=== PATIENT | male | born 1955 | race Caucasian/White ===

== ENCOUNTER → 2017-07-26 | Outpatient (CLI) | payer MEDICARE | LOC: RADXRMAIN 11:02 | PROVIDERS: ATTEND Urology | DX: Z53.9 Procedure and treatment not carried out, unspecified reason (principal) ==

== ENCOUNTER → 2019-10-02 | Outpatient (CLI) | payer MEDICARE ==
[2019-10-02 12:42] LABS: HCT 46.1 % (39.0-53.0); HGB 15.2 gm/dL (13.0-17.5); MCH 30.8 pg (25.0-35.0); MCHC 32.9 g/dL (31.0-37.0); MCV 93.4 fL (80.0-100.0); Mean Platelet Volume 8.4; Platelet Count 216 k/uL (150-450); RBC 4.94 m/uL (4.30-5.90); WBC 9.5 k/uL (3.8-10.6)
[2019-10-02 12:47] LABS: Appearance,Urine Clear (Clear); Color,Urine Amber
[2019-10-02 12:48] LABS: Bilirubin,Urine Negative (Negative); Blood,Urine Negative (Negative); Glucose,Urine (UA) Negative (Negative); Ketones,Urine Negative (Negative); Nitrite,Urine Negative (Negative); Protein,Urine Negative (Negative); Specific Gravity,Urine 1.025 (1.001-1.035)
[2019-10-02 12:49] LABS: ALT 29 U/L (4-49); AST 28 U/L (17-59); African American GFR (CKD) >90 (>60 ml/min/1.73 sqM); Albumin 4.2 g/dL (3.5-5.0); Alkaline Phosphatase 50 U/L (38-126); Anion Gap 9 mmol/L; Blood Urea Nitrogen 18 mg/dL (9-20); Carbon Dioxide 25 mmol/L (22-30); Chloride 107 mmol/L (98-107); Glucose 100 mg/dL (74-99); Leukocyte Esterase,Urine Negative (Negative); Non-African American GFR(CKD) 87 (>60 ml/min/1.73 sqM); Potassium 3.9 mmol/L (3.5-5.1); Sodium 141 mmol/L (137-145); Total Bilirubin 0.8 mg/dL (0.2-1.3); Urobilinogen,Urine <2.0 mg/dL (<2.0)
[2019-10-02 12:50] LABS: Partial Thromboplastin Time 27.7 sec (22.0-30.0); Prothrombin Time 10.3 sec (9.0-12.0)
== END | disposition home or self-care (01) ==
LOC: LABPAT 11:34
PROVIDERS: ATTEND Orthopaedic Surgery
DX: Z01.818 Encounter for other preprocedural examination (principal); Z01.812 Encounter for preprocedural laboratory examination; Z51.81 Encounter for therapeutic drug level monitoring; Z79.01 Long term (current) use of anticoagulants
CPT/HCPCS: 36415; 80053; 81003; 85027; 85610; 85730; 86850; 86900; 86901; 87070; 93005

== ENCOUNTER 2019-10-09 05:31 | Day surgery (SDC) | payer BC, MEDICARE ==
[2019-10-02 15:15] VITALS: BMI 31.7
[~2019-10-09 05:31] MED LIST: ACETAMINOPHEN TAB 500 MG TAB PO ONE; GABAPENTIN 300 MG CAP PO ONE; MELOXICAM 7.5 MG TAB PO ONE; TRANEXAMIC ACID 1,000 MG in SODIUM CHLORIDE 0.9% 100 ML IVPB ONE
[2019-10-09] MEDS ORDERED: MIDAZOLAM 2 MG/2 ML VIAL IVP ONE (05:32)
[2019-10-09] MEDS ORDERED: fentaNYL (PF) 50 MCG/ML 2 ML AMP IVP ONE (05:32)
[2019-10-09] MEDS ORDERED: HYDROmorphone 0.5 MG/0.5 ML SYRINGE IVP PRN ×4 (05:58→08:28)
[2019-10-09] MEDS ORDERED: ONDANSETRON 4 MG/2 ML VIAL IVP ONE (05:58)
[2019-10-09] MEDS ORDERED: LIDOCAINE 1% (10MG/ML) FOR IV START INTRADERMA PRN (05:58)
[2019-10-09] MEDS ORDERED: ACETAMINOPHEN TAB 500 MG TAB ONE (06:13)
[2019-10-09] MEDS ORDERED: ONDANSETRON 4 MG/2 ML VIAL ONE (06:13)
[2019-10-09] MEDS ORDERED: DEXAMETHASONE SOD PHOSPHATE 10 MG/ML 1 ML VIAL IV ONE (06:20)
[2019-10-09] MEDS: LACTATED RINGERS 1,000 ML IV SCH (06:25)
[2019-10-09] MEDS ORDERED: fentaNYL (PF) 50 MCG/ML 2 ML AMP ONE (06:52)
[2019-10-09] MEDS ORDERED: MIDAZOLAM 2 MG/2 ML VIAL ONE (06:52)
[2019-10-09] MEDS ORDERED: PHENYLEPHRINE-0.9% NACL SYG 1 MG/10 ML SYRINGE ONE (06:52)
[2019-10-09] MEDS ORDERED: TRANEXAMIC ACID 1,000 MG/10 ML VIAL ONE (06:52)
[2019-10-09] MEDS ORDERED: SODIUM CHLORIDE 0.9% 100 ML BAG ONE (06:52)
[2019-10-09] MEDS ORDERED: PROPOFOL 10 MG/ML 20 ML VIAL IV ONE (06:52)
[2019-10-09] MEDS ORDERED: ceFAZolin 3,000 MG in SODIUM CHLORIDE 0.9% IRRIGATIO 3,000 ML IRRIGATION ONE (06:57)
[2019-10-09] MEDS: ROPIVACAINE 246.25 MG, EPINEPHrine 0.5 MG, KETOROLAC 30 MG, cloNIDine HCL/PF 80 MCG, WA... MISCELLANE ONE ×10 (07:33→07:54)
--- NOTE | 2019-10-09 08:18 | P.OP ---
Date of Procedure: 10/09/19 Preoperative Diagnosis: Severe osteoarthritis left hip Postoperative Diagnosis: Severe osteoarthritis left hip Procedure(s) Performed: Left total hip arthroplasty with a direct anterior approach Implants: Lopez and nephew Polarstem size 3 standard Lopez & Nephew R3, 3 hole acetabular shell, 56 mm Lopez & Nephew reflection 6.5 mm cancellus screw, 20 mm 2 Lopez & Nephew R3, XLPE 20 acetabular liner Lopez & Nephew Oxinium femoral head 36 m, +0 All components were press-fit. The articulation is Oxinium on polyethylene. Anesthesia: spinal Surgeon: Benjamin Frias Detective Private Eye #1: Trini Barros Estimated Blood Loss (ml): 250 (130 mL returned with Cell Saver) Pathology: other (Femoral head) Condition: stable Disposition: PACU Indications for Procedure: After failure of conservative treatment we discussed the surgical and nonsurgical treatment options at length. Patient wishes to proceed with a total hip arthroplasty with a direct anterior approach. Complications specific to this procedure were discussed at length, including but not limited to infection, leg length discrepancy, dislocation, and nerve injury. Covid-19 was also discussed at length with the patient, and they are aware of the current policies and procedures. The patient was given the option of delaying surgery, but they elect to proceed knowing these risks. Patient is aware of all these complications and informed consent was obtained Operative Findings: The operative findings are consistent with severe osteoarthritis the left hip Description of Procedure: Patient was seen and evaluated in the preoperative area, consent was reviewed, and the surgical site was marked with a skin marker. Patient was then brought to the operating room and given prophylactic antibiotics intravenously. 1 g of Tranexamic acid was also given. A spinal anesthetic was administered by the anesthesia department. The patient was then placed on the Oxford table with the bony prominences well-padded. The hip area was then prepped and draped in usual sterile fashion. A universal timeout was then performed, which confirmed the patient's name, surgical site, ALLERGIES, and procedure being performed. Next the incision site was located at 1 cm distal and 1 cm lateral to the anterior superior iliac spine. The skin and subcutaneous tissues were sharply incised. Incision was carefully dissected down to the fascia overlying the tensor fascia cee muscle. This fascia was then incised in line with the incision. Next, using blunt finger dissection, the tensor fascia cee muscle was dissected off its investing fascia. The muscle was then carefully retracted laterally with a cobra retractor over the lateral neck of the femur. Next, the circumflex vessels were identified and cauterized using the AquaMantis device. The anterior hip capsule was then exposed. The capsule was then opened and an inverted T fashion. Cobra retractors were then placed intracapsularly. The proximal femur was then visualized. The femoral neck was then osteotomized appropriate level above the lesser trochanter. Small amount of traction was placed with the Oxford table. A small wedge of bone was then removed from the remaining femoral head. Next, using a corkscrew femoral head was easily removed from the acetabulum. On gross visual inspection, the femoral head had complete loss of articular cartilage in multiple periarticular osteophytes. Attention was then turned to the acetabulum. the acetabulum was exposed and any remaining labrum was excised. Sequential reaming of the acetabulum was performed using fluoroscopic guidance. When the appropriate size was reached, a trial was then placed. The position and fit of the trial was checked with fluoroscopy. The trial was then removed. Then, using fluoroscopic guidance, the final implant was impacted at 20 of anteversion and 40 of abduction, and fully seated in the acetabulum. 2 screws were then placed in the acetabulum. Again fluoroscopy was used to check position of the screws. Next, the liner was then impacted, with a 20 elevated liner located in the anterior superior quadrant. Component locking was confirmed. Attention was then directed to the femur. With the aid of the Oxford table, the femur was externally rotated to approximately 130, extended, and abducted under the opposite leg. A side hook was then placed under the proximal femur, and the side hook elevator was used to elevate the proximal femur. Retractors were then placed. A capsular release was performed, as well as a release of the conjoined tendon, which afforded excellent visualization of the proximal femur. Next, a box osteotome was used to lateralize the proximal femur. A merchandise clerk was then used to locate the femoral canal. Sequential broaching was then performed with appropriate size which afforded excellent fixation in the proximal femur. A trial was then placed with appropriate head and neck, and the hip was gently reduced with the aid of the Oxford table. Fluoroscopy was then used to check position of the components, as well as to ensure equal leg lengths. The hip was then gently dislocated and the trials were then removed. Final implants were then impacted and the hip was again reduced. Final fluoroscopic x-rays confirmed that the components were in anatomic position, as well as equal leg lengths. The hip was also taken through range of motion, and found to be stable. The hip was then copiously irrigated with antibiotic solution with pulsatile lavage. The hip was then irrigated with Irrisept solution. The soft tissues were then injected with a ropivacaine solution, which consisted of 246.25 mg of ropivacaine, 0.5 mg of epinephrine, 30 mg of Toradol, 80 g of clonidine, and 48.45 mL of sterile water, for a total of 100 mL of fluid injected. A second dose of 1 g of Tranexamic acid was also given. the fascia was then closed with 2-0 strata fix suture. The subcutaneous tissue was closed with 3-0 Vicryl. The subcuticular tissue was closed with 3-0 strata fix suture. The skin was then closed with Dermabond glue and a sterile silver dressing. The patient was then transferred to the recovery room in stable condition. The engineer first assistant KRISTOFER Multani was required due to the complexity of surgery, and the need for skilled surgical pathologist for positioning, draping, exposure, retraction, and closure of the wound.
--- NOTE | 2019-10-09 08:24 | XR ---
Fluoroscopy INDICATION: Pain FINDINGS: Fluoroscopy time: 44 seconds. Images obtained: 2. IMPRESSIONS: 1. Documentation of fluoroscopy.
[2019-10-09] MEDS ORDERED: diazePAM 5 MG TAB PO PRN (08:28)
[2019-10-09] MEDS ORDERED: hydrOXYzine pamoate 25 MG CAP PO PRN (08:28)
[2019-10-09] MEDS ORDERED: MAGNESIUM HYDROXIDE 2,400 MG/10 ML CUP PO PRN (08:28)
[2019-10-09] MEDS ORDERED: NALOXONE 0.4 MG/ML 1 ML VIAL IV PRN (08:28)
[2019-10-09] MEDS ORDERED: HYDROcodone/APAP 5-325MG 1 EACH TAB PO PRN ×2 (08:28)
[2019-10-09] MEDS ORDERED: ONDANSETRON 4 MG/2 ML VIAL IVP PRN (08:28)
--- NOTE | 2019-10-09 08:53 | XR ---
EXAMINATION TYPE: XR Hip Limited LT DATE OF EXAM: 10/09/2019 COMPARISON: None HISTORY: left hip replacement TECHNIQUE: AP left hip FINDINGS: Femoral and acetabular components in place. No acute fractures are evident. IMPRESSION: 1. No fracture post left hip replacement
[2019-10-09] MEDS: SODIUM CHLORIDE 0.9% 1,000 ML IV SCH ×2 (09:01→20:31)
[2019-10-09 14:52] VITALS: RESP 18
[2019-10-09] MEDS: ASPIRIN 325 MG TAB PO SCH (20:28)
[2019-10-09] MEDS ORDERED: SENNOSIDES-DOCUSATE SODIUM 1 EACH TAB PO SCH (21:00)
--- NOTE | 2019-10-09 22:31 | P.CONS ---
History of Present Illness - Reason for Consult Consult date: 10/09/19 Medical management Requesting physician: Benjamin Frias - Chief Complaint Anterior left total hip arthroplasty, severe osteoarthritis, BPH and hyperl - History of Present Illness 64-year-old male one of Dr. 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 Review of Systems CONSTITUTIONAL: Well-developed no acute respiratory distress. EYES: No icterus sclerae, no conjunctivitis. EARS, NOSE, MOUTH, THROAT, and FACE: No sore throat, lymphadenopathy, carotid bruits or deformity. RESPIRATORY: No SOB cough or wheezes. CARDIOVASCULAR: No CP, Palpitation, PND, Orthopnea, or angina. GASTROINTESTINAL: No Abd pain, Nausea or vomiting, no Diarrhea or constipation, No GI Bleed, no distention or masses. GENITOURINARY: Negative for Hematuria or UTI, no kidney stones. INTEGUMENT/BREAST: Negative for any muscular injury with mild osteoarthritis.. HEMATOLOGIC/LYMPHATIC: Negative for bleed or purpura. MUSCULOSKELTAL: Negative for Myalgia or arthralgia. Mild discomfort around the surgical site area. NEURLOGICAL: No LOC, Sz or syncope, blurred vision dizziness or abnormality.. BEHAVIORAL/PSYCH: Negative. ENDOCRINE: Negative. Past Medical History Past Medical History: Hyperlipidemia, Skin Disorder, Sleep Apnea/CPAP/BIPAP Additional Past Medical History / Comment(s): eczema, History of Any Multi-Drug Resistant Organisms: None Reported Past Surgical History: Hernia Repair, Tonsillectomy Additional Past Surgical History / Comment(s): elisa cataracts Past Anesthesia/Blood Transfusion Reactions: Motion Sickness Past Psychological History: No Psychological Hx Reported Smoking Status: Former smoker Past Alcohol Use History: Occasional Additional Past Alcohol Use History / Comment(s): quit smoking 1989, smoked for 18 yrs, < 1 PPD Past Drug Use History: None Reported - Past Family History Father Family Medical History: Cancer Son(s) Family Medical History: Cancer Medications and Allergies Home Medications Medication Instructions Recorded Confirmed Type Atorvastatin Calcium [Lipitor] 10 mg PO DAILY 10/02/19 10/02/19 History Flaxseed Oil 1,000 mg PO DAILY 10/02/19 10/02/19 History Glucos Sul 2Kcl/MSM/Chond/C/Mn 1 each PO DAILY 10/02/19 10/02/19 History [Glucosamine Chondroitin Cap] Ibuprofen 200 mg PO Q8H 10/02/19 10/02/19 History Multivitamins, Thera [Multivitamin 1 tab PO DAILY 10/02/19 10/02/19 History (formulary)] [place]-3 Fatty Acids/Fish Oil [Fish 1 each PO DAILY 10/02/19 10/02/19 History Oil 1,000 mg Softgel] Allergies Allergy/AdvReac Type Severity Reaction Status Date / Time Penicillins Allergy Rash/Hives Verified 10/02/19 15:05 Physical Exam Vitals: Vital Signs Temp Pulse Pulse Resp BP Pulse Ox 10/09/19 09:02 67 16 93/51 96 10/09/19 08:50 71 16 92/51 94 L 10/09/19 08:35 68 16 100/54 95 10/09/19 08:20 99.3 F 79 12 110/64 95 10/09/19 05:57 97.7 F 67 16 128/83 100 Intake and Output 10/08/19 10/09/19 10/09/19 22:59 06:59 14:59 Intake Total 851 225 Output Total 200 Balance 851 25 Intake: IV 851 225 Output: Estimated Blood Loss 200 Other: Weight 97.2 kg 97.2 kg General Appearance: Alert, cooperative, no distress, appears stated age. Neck HEENT: Supple, no lymphadenopathy, no thyroid enlargement, no carotid bruits. Lungs: Clear to auscultation without crackles or wheezes no rhonchi, no deformity. Chest Wall: Chest wall normal expansion with deep inspiration no tenderness and no deformity was found on exam, no costochondral pain or discomfort. Heart: Regular rate and rhythm, S1, S2 normal, no murmur, rub or gallop. Back: Symmetric, no curvature, ROM normal, no CVA tenderness. Abdomen: Soft, non-tender, bowel sounds active all four quadrants, no masses, no organomegaly. Extremities: Extremities normal, atraumatic, no cyanosis or edema. Incision left hip looks great with no bleeding hemorrhage no induration or redness. Pulses: 2+ and symmetric. Skin: Skin color, texture, tugor normal, no rashes or lesions. Neurologic: Alert oriented x3 cranial nerves II through XII intact, no motor deficit, no abnormal balance or gait. Assessment and Plan Assessment: 1 post left total hip arthroplasty: Did well so far resume home meds, patient is very stable hemodynamically, pain is well controlled at this point with start PT tomorrow morning. 2 hyperlipidemia: Continue patient on atorvastatin doing well. 3 obstructive sleep apnea: Has been on CPAP doing well with it. 4 BPH: Watch for any urinary retention. 5 DVT prophylaxis: On aspirin. 6 pain management: Patient has been on hydrocodone along with gabapentin and meloxicam. 7 GI prophylaxis: Patient is on Pepcid 20 mg daily. CODE STATUS: Full code. Dr. Frias thank you much for the consult more than happy to see this patient along with you in the hospital if I can be any further help to please let me know thank you.
[2019-10-10 02:49] VITALS: TEMP 97.5
[2019-10-10] MEDS: LACTATED RINGERS 1,000 ML IV SCH (03:30)
[2019-10-10 07:17] VITALS: BP 127/73; PULSE 56
[2019-10-10] MEDS: ASPIRIN 325 MG TAB PO SCH (07:47)
[2019-10-10 08:07] LABS: Basophils # (A) 0.1 k/uL (0-0.2); Basophils % (A) 0 %; Eosinophils # (A) 0.1 k/uL (0-0.7); Eosinophils % (A) 1 %; HCT 42.2 % (39.0-53.0); HGB 13.3 gm/dL (13.0-17.5); Lymphocytes # (A) 2.9 k/uL (1.0-4.8); Lymphocytes % (A) 17 %; MCH 30.1 pg (25.0-35.0); MCHC 31.5 g/dL (31.0-37.0); MCV 95.8 fL (80.0-100.0); Mean Platelet Volume 8.5; Monocytes # (A) 1.1 k/uL (0-1.0); Monocytes % (A) 6 %; Neutrophils % (A) 75 %; Platelet Count 207 k/uL (150-450); RBC 4.41 m/uL (4.30-5.90); RDW 13.1 % (11.5-15.5); WBC 17.3 k/uL (3.8-10.6)
[2019-10-10] MEDS ORDERED: ATORVASTATIN 10 MG TAB PO SCH (09:00)
[2019-10-10] MEDS ORDERED: FAMOTIDINE 20 MG TAB PO SCH (09:00)
[2019-10-10] MEDS ORDERED: MELOXICAM 7.5 MG TAB PO SCH (09:00)
--- NOTE | 2019-10-10 09:09 | P.DS ---
Providers Expected date of discharge: 10/10/19 Attending physician: Benjamin Frias Consults: 10/09/19 08:28 Consult Physician Routine Consulting Provider: Adonis Friedman Reason/Comments: medical management Do you want consulting provider notified?: Yes Primary care physician: Enio Araiza - Discharge Diagnosis(es) (1) Osteoarthritis of left hip Current Visit: Yes Status: Acute (2) Status post total hip replacement, left Current Visit: Yes Status: Acute Hospital Course: This is a 64-year-old male with known history of degenerative arthritis of the left hip. The patient presents for evaluation. After discussion and consideration patient elects to proceed with total hip arthroplasty. The patient is seen preoperatively by Dr. Frias and medically cleared for surgery by their primary care physician. Patient is admitted to [facility] on 10/09/2019 for total hip arthroplasty. The procedures performed without complication or sequelae. The patient is doing well postoperatively. Labs and vital signs are stable on day of discharge. On day of discharge patient's hip incision is healing well. There is minimal erythema. There is no drainage noted at this time. There is minimal soft tissue swelling to the hip and thigh. Patient has full foot and ankle motion without difficulty or pain. Calf is soft and nontender to palpation. Neurovascular status to the left lower extremity is intact. Patient is discharged home in good condition. Please see med rec for accurate list of home medications. Plan - Discharge Summary Discharge Rx Participant: Yes New Discharge Prescriptions: New Aspirin 325 mg PO BID tab Meloxicam [Mobic] 7.5 mg PO DAILY #30 tab HYDROcodone/APAP 5-325MG [[place] 5-325] 1 each PO Q6HR PRN tab PRN Reason: Pain Scale 1 To 5 Sennosides-Docusate Sodium [Senokot-S] 2 each PO HS tab hydrOXYzine pamoate [Vistaril] 25 mg PO AC-TID PRN #30 cap PRN Reason: Nausea, Anxiety, Pain Control Continue Multivitamins, Thera [Multivitamin (formulary)] 1 tab PO DAILY Flaxseed Oil 1,000 mg PO DAILY Atorvastatin Calcium [Lipitor] 10 mg PO DAILY [place]-3 Fatty Acids/Fish Oil [Fish Oil 1,000 mg Softgel] 1 each PO DAILY Glucos Sul 2Kcl/MSM/Chond/C/Mn [Glucosamine Chondroitin Cap] 1 each PO DAILY Ibuprofen 200 mg PO Q8H Discharge Medication List Atorvastatin Calcium [Lipitor] 10 mg PO DAILY 10/02/19 [History] Flaxseed Oil 1,000 mg PO DAILY 10/02/19 [History] Glucos Sul 2Kcl/MSM/Chond/C/Mn [Glucosamine Chondroitin Cap] 1 each PO DAILY 10/02/19 [History] Ibuprofen 200 mg PO Q8H 10/02/19 [History] Multivitamins, Thera [Multivitamin (formulary)] 1 tab PO DAILY 10/02/19 [History] [place]-3 Fatty Acids/Fish Oil [Fish Oil 1,000 mg Softgel] 1 each PO DAILY 10/02/19 [History] Aspirin 325 mg PO BID tab 10/10/19 [Rx] HYDROcodone/APAP 5-325MG [[place] 5-325] 1 each PO Q6HR PRN tab 10/10/19 [Rx] Meloxicam [Mobic] 7.5 mg PO DAILY #30 tab 10/10/19 [Rx] Sennosides-Docusate Sodium [Senokot-S] 2 each PO HS tab 10/10/19 [Rx] hydrOXYzine pamoate [Vistaril] 25 mg PO AC-TID PRN #30 cap 10/10/19 [Rx] Follow up Appointment(s)/Referral(s): Benjamin Frias DO [Doctor of Osteopathic Medicine] - 10/20/19 8:30 am Enio Araiza MD [Primary Care Provider] - 1 Week Activity/Diet/Wound Care/Special Instructions: Weightbearing as tolerated with walker. Leave dressing intact. Dressing may be removed by home care nurse or by patient in 10 days. May shower with dressing on. Recommend use of compression stockings daily until follow up to help prevent swelling and blood clots. May remove at night before sleeping. Please follow-up with [facility] in 2 weeks and call with any questions or concerns, . Discharge Disposition: HOME WITH HOME HEALTH SERVICES
[2019-10-10] MEDS ORDERED: NALOXONE 0.4 MG/ML 1 ML VIAL IV PRN (09:42)
[2019-10-10] MEDS ORDERED: ONDANSETRON 4 MG/2 ML VIAL IVP PRN (09:42)
--- NOTE | 2019-10-10 09:52 | P.PN ---
Subjective Progress Note Date: 10/10/19 64-year-old male one of Dr. 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 10/09; patient seen and examined this morning sitting up in chair, working with PT. Reports feeling well and is ready for discharge home today if okay with surgery. Vital signs are stable patient remains afebrile pulse 70, blood pressure 127/73, respirations 18, patient pulse ox 96% on room air. Objective - Vital Signs Vital signs: Vital Signs Temp 97.5 F L 10/10/19 07:00 Pulse 56 L 10/10/19 07:00 Resp 18 10/10/19 07:00 BP 127/73 10/10/19 07:00 Pulse Ox 96 10/10/19 07:00 Intake & Output 10/09/19 10/10/19 10/10/19 18:59 06:59 18:59 Intake Total 505 580 Output Total 200 Balance 305 580 Weight 97.2 kg Intake: IV 225 Intake, IV Titration 280 280 Amount Sodium Chloride 0.9% 1, 280 280 000 ml @ 70 mls/hr IV . [id number] LESIA Rx#:[id number] Oral 300 Output: Estimated Blood Loss 200 Other: Voiding Method Toilet # Voids 3 - Labs CBC & Chem 7: 10/10/19 07:30 Labs: Abnormal Lab Results - Last 24 Hours (Table) 10/10/19 Range/Units 07:30 WBC 17.3 H (3.8-10.6) k/uL Neutrophils # 13.0 H (1.3-7.7) k/uL Monocytes # 1.1 H (0-1.0) k/uL Assessment and Plan Assessment: Review of Systems CONSTITUTIONAL: Well-developed no acute respiratory distress. EYES: No icterus sclerae, no conjunctivitis. EARS, NOSE, MOUTH, THROAT, and FACE: No sore throat, lymphadenopathy, carotid bruits or deformity. RESPIRATORY: No SOB cough or wheezes. CARDIOVASCULAR: No CP, Palpitation, PND, Orthopnea, or angina. GASTROINTESTINAL: No Abd pain, Nausea or vomiting, no Diarrhea or constipation, No GI Bleed, no distention or masses. GENITOURINARY: Negative for Hematuria or UTI, no kidney stones. INTEGUMENT/BREAST: Negative for any muscular injury with mild osteoarthritis.. HEMATOLOGIC/LYMPHATIC: Negative for bleed or purpura. MUSCULOSKELTAL: Negative for Myalgia or arthralgia. Mild discomfort around the surgical site area. NEURLOGICAL: No LOC, Sz or syncope, blurred vision dizziness or abnormality.. BEHAVIORAL/PSYCH: Negative. ENDOCRINE: Negative. Assessment: General Appearance: Alert, cooperative, no distress, appears stated age. Neck HEENT: Supple, no lymphadenopathy, no thyroid enlargement, no carotid bruits. Lungs: Clear to auscultation without crackles or wheezes no rhonchi, no deformity. Chest Wall: Chest wall normal expansion with deep inspiration no tenderness and no deformity was found on exam, no costochondral pain or discomfort. Heart: Regular rate and rhythm, S1, S2 normal, no murmur, rub or gallop. Back: Symmetric, no curvature, ROM normal, no CVA tenderness. Abdomen: Soft, non-tender, bowel sounds active all four quadrants, no masses, no organomegaly. Extremities: Extremities normal, atraumatic, no cyanosis or edema. Incision left hip looks good with no bleeding hemorrhage no induration or redness. Pulses: 2+ and symmetric. Skin: Skin color, texture, tugor normal, no rashes or lesions. Neurologic: Alert oriented x3 cranial nerves II through XII intact, no motor deficit, no abnormal balance or gait. Assessment and Plan 1 post left total hip arthroplasty: 2 hyperlipidemia: 3 obstructive sleep apnea: 4 BPH: 5 DVT prophylaxis: On aspirin. 6 pain management: Discharge plan: Home with homecare Impression and plan of care have been directed as dictated by the signing physician. Jeanette Steen nurse practitioner acting as scribe for signing physician. Dr. Frias thank you much for the consult more than happy to see this patient along with you in the hospital if I can be any further help to please let me know thank you.
== END 2019-10-10 12:42 | disposition home health service (06) ==
LOC: OR 05:31 → EDSTATUS 07:00 → 4SSUR 08:15 → OR 10-10 12:42
PROVIDERS: ATTEND Orthopaedic Surgery
DX: M16.12 Unilateral primary osteoarthritis, left hip (principal); N40.0 Benign prostatic hyperplasia without lower urinary tract symptoms; E78.5 Hyperlipidemia, unspecified; G47.33 Obstructive sleep apnea (adult) (pediatric); Z79.899 Other long term (current) drug therapy; Z88.0 Allergy status to penicillin; Z87.891 Personal history of nicotine dependence; Z98.49 Cataract extraction status, unspecified eye; Z98.890 Other specified postprocedural states; Z99.89 Dependence on other enabling machines and devices; Z97.3 Presence of spectacles and contact lenses
CPT/HCPCS: 97116; 97161; 97165; 85025; 88300; 73501; 27130; C1776; J0171; J1100; J0690 ×3; J2405; J1885; J2795; J2370; J2704; J0735; 86850; 86900; 86901